=== PATIENT | male | born 1960 | race African-American/Black ===

== ENCOUNTER 2022-05-02 07:05 | Day surgery (SDC) | payer BC ==
[2022-05-01 16:36] LABS: SARS-CoV-2 Antigen Rapid Res Negative (Negative)
[2022-05-02] MEDS: NA CHLORIDE 0.9% 1,000 ML ONE ×2 (07:31→09:13)
[2022-05-02] MEDS ORDERED: GLYCOPYRROLATE 0.2 MG/ML SYR ONE (08:51)
[2022-05-02] MEDS ORDERED: propofoL 200 MG/20 ML VIAL IV ONE ×3 (08:51→09:12)
[2022-05-02] MEDS ORDERED: LIDOCAINE 1% MPF 30 ML VIAL ONE (08:51)
--- NOTE | 2022-05-02 09:33 | ENDO RPT ---
[address], [address] EGD PROCEDURE REPORT EXAM DATE: 05/02/2022 PATIENT NAME: Miguel Crooks MR#: [id number] BIRTHDATE: 1960 ATTENDING: Jeevan Marquis DR STATUS: outpatient FEED MILL SUPERVISOR: Aletha Vu RN and Tucker Cope [facility] INDICATIONS: The patient is a 61 yr old Male here for an EGD due to dyspepsia, epigastric pain, and GERD PROCEDURE PERFORMED: EGD with biopsy for H. pylori MEDICATIONS: Per Anesthesia. TOPICAL ANESTHETIC: none CONSENT: The patient understands the risks and benefits of the procedure and understands that these risks include, but are not limited to: sedation, allergic reaction, infection, perforation and/or bleeding. Alternative means of evaluation and treatment include, among others: physical exam, x-rays, and/or surgical intervention. The patient elects to proceed with this endoscopic procedure. DESCRIPTION OF PROCEDURE: During intra-op preparation period all mechanical medical equipment was checked for proper function. Hand hygiene and appropriate measures for infection prevention was taken. Procedure, possible complications, and alternatives including but not limited to the possibility of bleeding, perforation, tear, infection, sepsis, need for surgery, need for blood transfusion, and anesthesia related complications were explained to the patient. After the risks, benefits and alternatives of the procedure were thoroughly explained, Informed consent was verified, confirmed and timeout was successfully executed by the treatment team. The patient was placed in the left lateral position. The patient was anesthetized with topical anesthesia. Through the anesthetized oropharyngeal area, the scope was passed without any difficulty. The EG-[id number] ([id number]) endoscope was introduced through the mouth and advanced to the second portion of the duodenum. Retroflexed views revealed a small hiatal hernia. The gastroscope was then slowly withdrawn and removed. Multiple erosions were found in the body and the antrum of the stomach. Multiple biopsies were obtained and sent to pathology. A biopsy for H. pylori was taken. Mild gastritis was found in the body and the antrum of the stomach. Multiple biopsies were obtained and sent to pathology. A biopsy for H. pylori was taken. Inflammation @ Arytenoids above vocal cord ADVERSE EVENTS: There were no complications. IMPRESSIONS: Multiple erosions were found in the body and the antrum of the stomach RECOMMENDATIONS: 1. acid suppression therapy 2. anti-reflux regimen 3. await biopsy results 4. avoid NSAIDS 5. follow-up: office 2 week(s) 6. follow-up of helicobacter pylori status, treat if indicated 7. Follow up with ENT - Referral sent for inflammation around vocal cords REPEAT EXAM: Jeevan Marquis DR eSigned: Jeevan Marquis DR 05/02/2022 9:32 AM cc: CPT CODES: ICD9 CODES: PATIENT NAME: Miguel Crooks MR#: [id number]
--- NOTE | 2022-05-02 09:36 | ENDO RPT ---
[address], [address] COLONOSCOPY PROCEDURE REPORT EXAM DATE: 05/02/2022 PATIENT NAME: Miguel Crooks MR #: [id number] BIRTHDATE: 1960 ATTENDING: Jeevan Marquis DR STATUS: outpatient POUNCER MACHINE: Aletha Vu RN and Tucker Cope [facility] INDICATIONS: The patient is a 61 yr old Male here for a colonoscopy due to colon cancer screening PROCEDURE PERFORMED: Screening Colonoscopy and Colonoscopy MEDICATIONS: Per Anesthesia. ESTIMATED BLOOD LOSS: None CONSENT: The patient understands the risks and benefits of the procedure and understands that these risks include, but are not limited to: sedation, allergic reaction, infection, perforation and/or bleeding. Alternative means of evaluation and treatment include, among others: physical exam, x-rays, and/or surgical intervention. The patient elects to proceed with this endoscopic procedure. DESCRIPTION OF PROCEDURE: During intra-op preparation period all mechanical medical equipment was checked for proper function. Hand hygiene and appropriate measures for infection prevention was taken. Procedure, possible complications, alternatives including, but not limited to possibility of bleeding, perforation, tear, infection, sepsis, need for surgery, need for blood transfusion, were explained to the patient. After the risks, benefits and alternatives of the procedure were thoroughly explained, Informed consent was verified, confirmed and timeout was successfully executed by the treatment team. The patient was placed in the left lateral position. A digital rectal exam was performed and revealed internal hemorrhoids. After appropriate level of anesthesia, the scope was passed. The EC-[id number] ([id number]) and EG-[id number] ([id number]) endoscope was introduced through the anus and advanced to the cecum, which was identified by both the appendix and ileocecal valve. The quality of the prep was fair. The instrument was then slowly withdrawn as the colon was fully examined. Scope withdrawal time was 10 minutes. COLON FINDINGS: Small internal and external hemorrhoids were found. Mild diverticulosis was noted throughout the entire examined colon. No bleeding was noted from the diverticulosis. Retroflexed views revealed no abnormalities. The scope was then completely withdrawn from the patient and the procedure terminated. ADVERSE EVENTS: There were no complications. IMPRESSIONS: 1. Small internal and external hemorrhoids 2. Mild diverticulosis was noted throughout the entire examined colon RECOMMENDATIONS: 1. avoid NSAIDS for 2 weeks 2. follow-up: office 2 week(s) 3. Monitor for any evidence of rectal bleeding. 4. yearly hemoquant 5. hemorrhoidal hygiene 6. yearly hemoccult starting in 4 years 7. low fiber / diverticular diet RECALL: Return in 5 year(s) for Colonoscopy. Jeevan Marquis DR eSigned: Jeevan Marquis DR 05/02/2022 9:36 AM cc: CPT CODES: ICD9 CODES: PATIENT NAME: Miguel Crooks MR#: [id number]
--- NOTE | 2022-05-02 10:53 | EKG ---
Test Date: 2022-05-01 Test Time: 15:36:48 Operations Supervisor 2Nd Shift: SHANNAN MEASUREMENT RESULTS: Intervals: Rate: 67 IL: 158 QRSD: 82 QT: 408 QTc: 431 [place]: P: 48 IL: 158 QRS: 81 T: -8 INTERPRETIVE STATEMENTS: Normal sinus rhythm ST abnormality, possible digitalis effect Abnormal QRS-T angle, consider primary T wave abnormality Abnormal ECG Compared to ECG 12/10/2011 19:53:08 ST (T wave) deviation now present Sinus tachycardia no longer present T-wave abnormality still present Electronically Signed On 05-02-22 10:50:20 CDT by Jey Ortiz
[2022-05-02 11:10] VITALS: BP 115/84; TEMP 96.7; O2SAT 98
== END 2022-05-02 10:04 | disposition home or self-care (01) ==
LOC: OR 07:05
PROVIDERS: ATTEND Surgery
PROC: 0DB68ZX Excision of Stomach, Via Natural or Artificial Opening Endoscopic, Diagnostic (ICD-10-PCS; 2022-05-02)
PROC: 0DB48ZX Excision of Esophagogastric Junction, Via Natural or Artificial Opening Endoscopic, Diagnostic (ICD-10-PCS; 2022-05-02)
PROC: 0DJD8ZZ Inspection of Lower Intestinal Tract, Via Natural or Artificial Opening Endoscopic (ICD-10-PCS; 2022-05-02)
PROC: 0DB98ZX Excision of Duodenum, Via Natural or Artificial Opening Endoscopic, Diagnostic (ICD-10-PCS; principal; 2022-05-02 08:30)
PROC: 0DB78ZX Excision of Stomach, Pylorus, Via Natural or Artificial Opening Endoscopic, Diagnostic (ICD-10-PCS; 2022-05-02 08:30)
DX: R10.13 Epigastric pain (principal); K21.9 Gastro-esophageal reflux disease without esophagitis; K29.50 Unspecified chronic gastritis without bleeding; K44.9 Diaphragmatic hernia without obstruction or gangrene; K25.7 Chronic gastric ulcer without hemorrhage or perforation; K64.8 Other hemorrhoids; K64.4 Residual hemorrhoidal skin tags; K57.30 Diverticulosis of large intestine without perforation or abscess without bleeding; Z12.11 Encounter for screening for malignant neoplasm of colon; Z20.822 Contact with and (suspected) exposure to COVID-19
CPT/HCPCS: 93005; 36415; 88312; 82947; 88305; 87811; 43239; 45378; J2704 ×2; J7030